=== PATIENT | female | born 1970 | race Caucasian/White ===

== ENCOUNTER 2021-03-28 09:19 | Day surgery (SDC) | payer OTHER ==
[~2021-03-28] VITALS: Ht 172.7 cm; Wt 116.1 kg
[~2021-03-28 09:19] MED LIST: ALPR0.254 PO; AMLO-211 PO; ATOR20TA37 PO; CHOL10003 PO; FLUO40CA2 PO; OXYC5CAP2 PO; UBID100C41 PO; VIT500TA3 PO
[2021-03-28 09:47] VITALS: BP 109/72
[2021-03-28] MEDS ORDERED: CHLORHEXIDINE 15 ML UDC ONE (09:54)
[2021-03-28] MEDS ORDERED: LACTATED RINGERS 1,000 ML IV SCH (10:00)
[2021-03-28] MEDS ORDERED: CHLORHEXIDINE 15 ML UDC PO ONE (10:00)
[2021-03-28] MEDS ORDERED: TRANEXAMIC ACID 100 MG/ML, 10ML ONE (11:05)
[2021-03-28] MEDS ORDERED: FENTANYL PF 100 MCG/2ML ONE ×2 (13:32→15:00)
[2021-03-28] MEDS ORDERED: MIDAZOLAM 1 MG/ML, 2ML ONE (13:32)
[2021-03-28] MEDS ORDERED: OXYcodone 5 MG/5 ML ORAL.SOL UDC PO PRN (14:00)
[2021-03-28] MEDS ORDERED: PROMETHAZINE 25 MG SUPP PR PRN (14:00)
[2021-03-28] MEDS ORDERED: MEPERIDINE/PF 25MG/0.5ML IVPush PRN (14:00)
[2021-03-28] MEDS ORDERED: ACETAMINOPHEN 325 MG TABLET PO PRN (14:00)
[2021-03-28] MEDS ORDERED: METHOCARBAMOL 1,000 MG in DEXTROSE 5% 100 ML IV PRN (14:00)
[2021-03-28] MEDS ORDERED: ONDANSETRON 2MG/ML, 2ML IVPush PRN (14:00)
[2021-03-28] MEDS ORDERED: LORazepam 2 MG/ML, 1ML IVPush PRN (14:00)
[2021-03-28] MEDS ORDERED: HYDROmorphone 1 MG/ML, 1ML INJ IVPush PRN (14:00)
[2021-03-28] MEDS ORDERED: PROMETHAZINE 25 MG/ML, 1ML IVPush PRN (14:00)
[2021-03-28] MEDS ORDERED: BUPIVACAINE/PF 0.5% INFIL ONE (14:18)
[2021-03-28] MEDS ORDERED: LIDOCAINE 1%, 20ML INFIL ONE (14:18)
[2021-03-28] MEDS ORDERED: NEOSTIGMINE 1 MG/ML, 10ML ONE (14:23)
[2021-03-28] MEDS ORDERED: GLYCOPYRROLATE 0.2MG/1ML, 5ML ONE (14:23)
[2021-03-28] MEDS ORDERED: PROPOFOL 10 MG/ML, 20ML ONE (14:23)
[2021-03-28] MEDS ORDERED: ONDANSETRON 2MG/ML, 2ML ONE (14:23)
[2021-03-28] MEDS ORDERED: DEXAMETHASONE 4 MG/ML, 1ML ONE (14:23)
[2021-03-28] MEDS ORDERED: CEFAZOLIN 1,000 MG ONE (14:23)
[2021-03-28] MEDS ORDERED: SUCCINYLCHOLINE 20 MG/ML, 10ML ONE (14:23)
[2021-03-28] MEDS ORDERED: ROCURONIUM 10MG/ML,5ML ONE (14:23)
[2021-03-28] MEDS ORDERED: ACETAMINOPHEN 650 MG/20.3 ML UDC ONE (14:59)
[2021-03-28] MEDS ORDERED: OXYcodone 5 MG/5 ML ORAL.SOL UDC ONE (15:00)
[2021-03-28] MEDS: FENTANYL PF 100 MCG/2ML IV PRN ×2 (15:01→15:07)
== END 2021-03-28 16:00 | disposition home or self-care (01) ==
LOC: OUT 09:19 → EDSTATUS 11:15 → OUT 16:00
PROVIDERS: ATTEND Orthopaedic Surgery
DX: S92.352A Displaced fracture of fifth metatarsal bone, left foot, initial encounter for closed fracture (principal); S93.326A Dislocation of tarsometatarsal joint of unspecified foot, initial encounter; Z20.822 Contact with and (suspected) exposure to COVID-19; Z79.899 Other long term (current) drug therapy; X58.XXXA Exposure to other specified factors, initial encounter; Y93.89 Activity, other specified; Y92.89 Other specified places as the place of occurrence of the external cause; Y99.0 Civilian activity done for income or pay
CPT/HCPCS: 28485; 73620; C1713; J0330; J0690; J1100; J2250; J2405; J2704; J2710; J3010; J7120; U0003; U0005; 76000